=== PATIENT | male | born 1985 | race Caucasian/White ===

== ENCOUNTER 2018-03-11 15:45 | Emergency (ER) | payer SELFPAY ==
[~2018-03-11] VITALS: Ht 172.7 cm; Wt 90.2 kg
[2018-03-11 15:48] VITALS: BP 161/80
== END 2018-03-11 16:49 | disposition home or self-care (01) ==
LOC: ED 16:46
DX: S16.1XXA Strain of muscle, fascia and tendon at neck level, initial encounter (principal); V03.19XA Pedestrian with other conveyance injured in collision with car, pick-up truck or van in traffic accident, initial encounter; Y93.89 Activity, other specified; Y92.89 Other specified places as the place of occurrence of the external cause; Y99.8 Other external cause status
CPT/HCPCS: 72125; 99284